=== PATIENT | female | born 1950 | race Caucasian/White ===

== ENCOUNTER → 2017-07-09 | Outpatient (CLI) | payer OTHER, MEDICARE | LOC: CIMAGING 07:21 | PROVIDERS: ATTEND Family Medicine | DX: R94.5 Abnormal results of liver function studies (principal); E66.9 Obesity, unspecified | CPT/HCPCS: 76705-PO ==

== ENCOUNTER → 2017-09-04 | Outpatient (CLI) | payer OTHER, MEDICARE | LOC: CIMAGING 10:17 | PROVIDERS: ATTEND Family Medicine | DX: Z12.31 Encounter for screening mammogram for malignant neoplasm of breast (principal) ==

== ENCOUNTER → 2018-08-05 | Outpatient (CLI) | payer OTHER, MEDICARE | LOC: CIMAGING 13:33 | PROVIDERS: ATTEND Family Medicine | DX: J98.09 Other diseases of bronchus, not elsewhere classified (principal); Z87.01 Personal history of pneumonia (recurrent) | CPT/HCPCS: 71046-PO ==

== ENCOUNTER → 2018-11-01 | Outpatient (CLI) | payer OTHER, MEDICARE | LOC: CIMAGING 10:09 | PROVIDERS: ATTEND Family Medicine | DX: Z12.31 Encounter for screening mammogram for malignant neoplasm of breast (principal) ==

== ENCOUNTER → 2018-11-04 | Outpatient (CLI) | payer OTHER, MEDICARE | LOC: EMCIMAGING 09:29 | PROVIDERS: ATTEND Family Medicine | DX: Z13.820 Encounter for screening for osteoporosis (principal); Z78.0 Asymptomatic menopausal state | CPT/HCPCS: 77080-PN ==